=== PATIENT | male | born 1975 | race Caucasian/White ===

== ENCOUNTER 2020-09-07 20:25 | Inpatient (IN) ==
[2020-09-07 21:22] LABS: Basophils # 0.1 K/mcL (0.0-0.2); Basophils % 0.5 %; Bilirubin,Urine Negative (Negative); Blood,Urine Small (Negative); Clarity,Urine Clear (Clear); Color,Urine Light-Yellow (Yellow); Eosinophils # 0.2 K/mcL (0.0-0.6); Eosinophils % 1.5 %; Glucose,Urine (UA) Normal (Normal); Hematocrit 44.5 % (37.5-50.1); Hemoglobin 14.7 g/dL (12.9-16.9); Immature Granulocytes % 0.8 % (0-4); Ketones,Urine Negative (Negative); Leukocyte Esterase,Urine Negative (Negative); Lymphocytes # 3.8 K/mcL (0.6-4.6); Lymphocytes % 28.9 %; Mean Corpuscular Hemoglobin 28.6 pg (28.0-33.3); Mean Corpuscular Volume 86.6 fL (83.0-100.0); Mean Platelet Volume 11.2 fL (9.4-12.4); Monocytes # 0.8 K/mcL (0.0-1.3); Monocytes % 5.7 %; Mucus,Urine Few per lpf (None-Few); Neutrophils # 8.2 K/mcL (1.6-8.9); Nitrite,Urine Negative (Negative); PH,Urine 5.5 pH Units (5.0-8.0); Platelet Count 283 K/mcL (140-400); Protein,Urine Negative (Neg-Trace); RBC,Urine 0-3 per hpf (0-3); Red Blood Count 5.14 M/mcL (4.19-5.50); Red Cell Distribution Width 12.9 % (11.5-14.5); Segmented Neutrophils % 62.6 %; Specific Gravity,Urine 1.022 (1.010-1.025); Urobilinogen,Urine Normal (Normal); WBC,Urine 0-3 per hpf (0-3); White Blood Count 13.1 K/mcL (4.3-11.1)
[2020-09-07 21:28] LABS: Estimated Average Glucose 108 mg/dl
[2020-09-07 21:37] LABS: Amphetamine Screen,Urine Positive ng/mL (Cutoff=1000); Barbiturate Screen,Urine Negative ng/mL (Cutoff=200); Benzodiazepines Screen,Urine Negative ng/mL (Cutoff=200); Cannabinoid Screen,Urine Negative ng/mL (Cutoff = 50); Cocaine Screen,Urine Negative ng/mL (Cutoff= 300); Opiate Screen,Urine Negative ng/mL (Cutoff=300); Phencyclidine Screen,Urine Negative ng/mL (Cutoff=25)
[2020-09-07 21:39] LABS: Acetaminophen < 10 mcg/mL (10-20); BUN/Creatinine Ratio 13 (6-26); Blood Urea Nitrogen 11 mg/dL (6-20); Calcium 9.5 mg/dL (8.6-10.3); Carbon Dioxide 24 mEq/L (23-29); Chloride 109 mEq/L (98-107); Chol/HDL Ratio 3.7 (0-4.9); Cholesterol 172 mg/dL (< 200); Ethanol < 10 mg/dL (Less than 10); Glucose 99 mg/dL (70-105); HDL Cholesterol 46 mg/dL (40-59); LDL Cholesterol,Calculated 112 mg/dL (< 100); Osmolality,Calculated 289 (280-300); Potassium 3.6 mEq/L (3.5-5.1); Salicylate < 2.5 mg/dL (15.0-30.0); Sodium 140 mEq/L (136-145); Triglycerides 68 mg/dL (< 150); eGFR For African Americans > 60 (> 60); eGFR For Non-African Americans > 60 (> 60)
[2020-09-07] MEDS ORDERED: *HR* LORazepam 1 MG TABLET PO PRN (23:29)
[2020-09-07] MEDS ORDERED: Acetaminophen 325 MG TABLET PO PRN (23:29)
[2020-09-07] MEDS ORDERED: traZODone 50 MG TABLET PO PRN (23:29)
[2020-09-07] MEDS ORDERED: Haloperidol Lactate 5 MG/ML VIAL IM PRN (23:29)
[2020-09-07] MEDS ORDERED: *HR* LORazepam 2 MG/ML VIAL IM PRN (23:29)
[2020-09-07] MEDS ORDERED: hydrOXYzine pamoate 25 MG CAPSULE PO PRN (23:29)
[2020-09-07] MEDS ORDERED: Mag Hydrox/Al Hydrox/Simeth 30 ML UDC PO PRN (23:29)
[2020-09-07] MEDS ORDERED: haloperidoL 5 MG TABLET PO PRN (23:29)
[2020-09-08] MEDS: risperiDONE 1 MG TABLET PO SCH (20:41)
[2020-09-09] MEDS: risperiDONE 1 MG TABLET PO SCH (09:26)
[2020-09-09 09:27] VITALS: BP 130/94
== END 2020-09-09 12:25 | disposition home or self-care (01) | DRG 885 ==
LOC: EMEROOARM 20:25 → 1ANU 23:26
PROVIDERS: ADMIT Psychiatry & Neurology Psychiatry; ATTEND Psychiatry & Neurology Psychiatry